=== PATIENT | male | born 1980 | race Caucasian/White ===

== ENCOUNTER 2023-11-02 17:08 | Emergency (ER) | payer OTHER ==
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
[2023-11-02 17:53] VITALS: RESP 18
[2023-11-02 19:28] VITALS: BP 136/87; PULSE 108; TEMP 98
== END 2023-11-02 19:06 | disposition home or self-care (01) ==
LOC: EC 17:08
DX: Z02.83 Encounter for blood-alcohol and blood-drug test (principal)
CPT/HCPCS: 99499